=== PATIENT | female | born 1960 | race Caucasian/White ===

== ENCOUNTER 2024-05-11 08:00 | Emergency (ER) | payer OTHER, SELFPAY ==
[2024-05-11 08:19] VITALS: BP 124/78; PULSE 94; RESP 16; TEMP 36.4; O2SAT 95
--- NOTE | 2024-05-11 08:31 | ED_ITS ---
HPI - URI/Sore Throat General Chief Complaint: Upper Respiratory Infection Stated Complaint: Cough History of Present Illness HPI Narrative: 64-year-old female presents today with 2 weeks complaint of cough and congestion. Symptoms started 2 weeks ago with fever body aches chills cough congestion. She did test herself for flu but was negative. No longer has a fever but continues with fatigue, body aches, cough. Is taking Mucinex DM and Flonase with ibuprofen with little relief. Denies any known sick contacts. States the cough is no better than when it started. Related Data Home Medications ?Medication ?Instructions ?Recorded ?Confirmed ?Last Taken ?Type amlodipine 5 mg tablet mg 05/11/24 Unknown History olmesartan 5 mg tablet 5 mg PO DAILY 05/11/24 05/11/24 Unknown History Allergies Allergy/AdvReac Type Severity Reaction Status Date / Time No Known Allergies Allergy Verified 05/11/24 08:18 Review of Systems Review of Systems: All systems reviewed & are unremarkable except as noted in HPI and below Eyes: Eyes: Reports as per HPI ENT: Reports as per HPI Cardiovascular: Cardiovascular: Reports as per HPI Respiratory: Respiratory: Reports as per HPI Genitourinary: Genitourinary: Reports as per HPI Musculoskeletal: Musculoskeletal: Reports as per HPI Integumentary/Breasts: Skin/Breast: Reports as per HPI Neurologic: Reports as per HPI Psychiatric: Psychiatric: Reports as per HPI Endocrine: Endocrine: Reports as per HPI Hematologic/Lymphatic: Hematologic/Lymphatic: Reports as per HPI Allergic/Immunologic: Allergic/Immunologic: Reports as per HPI [facility] Past Medical History Medical History (Updated 05/11/24 @ 08:38 by Maye Lua APRN) Hypertension Exam Const: General: cooperative, healthy appearing, comfortable, no acute distress and well developed Orientation/consciousness: patient oriented x3 HENMT: Head: normal to inspection Eyes: General: appearance normal, both eyes and all related structures Resp: Effort & Inspection: normal respiratory effort and able to speak in complete sentences Auscultation: clear to auscultation bilaterally and rhonchi right lower Cardio: Rate: regular rate Rhythm: regular rhythm Heart sounds: S1 normal heart sound present and S2 normal heart sound present Skin: General skin exam: normal color Neuro: General: patient oriented x3 Cognition (Neuro): normal cognition Speech: normal speech Psych: Mental Status: mental status grossly normal Course Course Level of Care: Express Care Visit Vital Signs Vital signs: Vital Signs Temperature 97.6 F 05/11/24 08:19 Pulse Rate 94 05/11/24 08:19 Respiratory Rate 16 05/11/24 08:19 Blood Pressure 124/78 05/11/24 08:19 Pulse Oximetry 95 05/11/24 08:19 Temperature 97.6 F 05/11/24 08:19 Pulse Rate 94 05/11/24 08:19 Respiratory Rate 16 05/11/24 08:19 Blood Pressure 124/78 05/11/24 08:19 Pulse Oximetry 95 05/11/24 08:19 MDM - URI/Sore Throat MDM Narrative Medical decision making narrative: 64-year-old family HPI started. Differentials include but not limited to URI, sinusitis, pneumonia, viral infection, bronchitis, postviral cough, influenza. Rhonchi noted to the right lower lobe will treat for a possible pneumonia although lower suspicion. Cough for at least 2 weeks will treat for subacute cough. Amoxicillin, Zithromax, albuterol, prednisone. Patient does have a follow-up with her primary care on Monday and is instructed to addressing concerns at that time Differential Diagnosis Differential diagnosis: Likely upper respiratory infection, croup, sinusitis, viral infection, bronchitis and influenza Medical Records Attestation: I reviewed the patient's medical records. Discharge Plan Discharge Clinical Impression: Bronchitis, Sinusitis Patient Disposition: Home, Self-Care Condition: Stable Instructions: Antibiotic Form Additional Instructions: Continue taking guaifenesin. Medication as prescribed. Follow-up with your primary care provider as scheduled on Monday As already scheduled with any concerning symptoms. Patient Language: Azerbaijani Prescriptions: New prednisone 20 mg tablet 20 mg PO DAILY Qty: 10 0RF amoxicillin 875 mg tablet 875 mg PO Q12H Qty: 10 0RF azithromycin 250 mg tablet See Rx Instructions PO .COMPLEX Qty: 6 0RF Rx Instructions: For 250 mg dose pack: take 500 mg today (day 1), then 250 mg for 4 days (days 2-5) albuterol sulfate [Ventolin HFA] 90 mcg/actuation HFA aerosol inhaler 2 puff inhalation QID PRN (Reason: shortness of breath or wheezing) Qty: 8.5 0RF benzonatate 200 mg capsule 200 mg PO TID PRN (Reason: cough) Qty: 30 0RF No Action amlodipine 5 mg tablet olmesartan 5 mg tablet 5 mg PO DAILY Follow-up/Referrals: UNKNOWN,DOCTOR [Primary Care Provider] - Time of Disposition: 08:38
== END 2024-05-11 08:50 | disposition home or self-care (01) ==
PROVIDERS: Emergency Provider Nurse Practitioner Family
DX: J40 Bronchitis, not specified as acute or chronic (principal); J32.9 Chronic sinusitis, unspecified; I10 Essential (primary) hypertension
CPT/HCPCS: 99203; G0463

== ENCOUNTER 2024-05-14 09:59 | Outpatient (CLI) | payer OTHER, SELFPAY ==
--- NOTE | ~2024-05-14 | XR_ITS ---
CHEST RADIOGRAPH, PA AND LATERAL CLINICAL HISTORY: Pneumonia . COMPARISON: None available TECHNIQUE: PA and lateral views of the chest. FINDINGS The cardiomediastinal silhouette is unremarkable. Patchy opacification of the superior segment of the right lobe. The remainder of the lungs are clear. IMPRESSION: Right lower lobe infiltrate. Reviewed, dictated and finalized at location A.
== END 2024-05-14 10:00 | disposition home or self-care (01) ==
PROVIDERS: PCP Family Medicine; Visit Provider Family Medicine
DX: R91.8 Other nonspecific abnormal finding of lung field (principal); J18.9 Pneumonia, unspecified organism
CPT/HCPCS: 71046